=== PATIENT | female | born 1980 | race Caucasian/White ===

== ENCOUNTER 2018-03-02 09:48 | Day surgery (SDC) | payer MEDICAID ==
[~2018-03-02] VITALS: Ht 165.1 cm; Wt 66.2 kg
[2018-03-02] MEDS ORDERED: BUPIVACAINE /EPINEPHRINE/PF 0.25% 30 ML VIAL INJ ONE (09:49)
[2018-03-02] MEDS ORDERED: IOHEXOL 300 mgI/mL, 50 mL INFUS..BTL IV ONE (09:49)
[2018-03-02] MEDS ORDERED: methylPREDNISolone ACETATE 40 MG/ML IM ONE (09:49)
[2018-03-02] MEDS ORDERED: LIDOCAINE 2%, 20 ML MDV IM ONE (09:49)
[2018-03-02] MEDS ORDERED: MIDAZOLAM HCL 5 MG/5 ML VIAL ONE (10:15)
[2018-03-02] MEDS ORDERED: DIPHENHYDRAMINE INJ 50 MG/ML VIAL IVP ONE (11:11)
[2018-03-02 11:28] VITALS: BP_SYST 117
== END 2018-03-02 12:10 | disposition home or self-care (01) ==
LOC: SDS 09:48 → SMU 09:57 → SDS 12:10
PROVIDERS: ATTEND Internal Medicine
DX: M51.16 Intervertebral disc disorders with radiculopathy, lumbar region (principal); M54.5 Low back pain; G40.909 Epilepsy, unspecified, not intractable, without status epilepticus; E11.9 Type 2 diabetes mellitus without complications; Z90.710 Acquired absence of both cervix and uterus; Z98.890 Other specified postprocedural states; Z79.899 Other long term (current) drug therapy; Z88.0 Allergy status to penicillin; Z83.3 Family history of diabetes mellitus
CPT/HCPCS: 62323; J1030; J1200; J2001; J2250; J3490; Q9967

== ENCOUNTER 2018-08-31 09:22 | Day surgery (SDC) | payer MEDICAID ==
[~2018-08-31] VITALS: Ht 165.1 cm; Wt 74.4 kg
[2018-08-31] MEDS ORDERED: IOPAMIDOL 50 ML VIAL IV ONE (09:23)
[2018-08-31] MEDS ORDERED: methylPREDNISolone ACETATE 40 MG/ML IM ONE (09:23)
[2018-08-31] MEDS ORDERED: LIDOCAINE 2%, 20 ML MDV INJ ONE (09:23)
[2018-08-31] MEDS ORDERED: BUPIVACAINE /PF 0.25% 30 ML VIAL INJ ONE (09:23)
[2018-08-31] MEDS ORDERED: IOHEXOL 300 mgI/mL, 50 mL INFUS..BTL IV ONE (09:23)
[2018-08-31] MEDS ORDERED: MIDAZOLAM HCL 5 MG/5 ML VIAL ONE (09:39)
[2018-08-31] MEDS ORDERED: DIPHENHYDRAMINE INJ 50 MG/ML VIAL ONE (09:40)
[2018-08-31 16:26] VITALS: BP_SYST 122
== END 2018-08-31 11:39 | disposition home or self-care (01) ==
LOC: SDS 09:22 → SMU 09:22 → SDS 11:39
PROVIDERS: ATTEND Internal Medicine
DX: M51.16 Intervertebral disc disorders with radiculopathy, lumbar region (principal); G40.909 Epilepsy, unspecified, not intractable, without status epilepticus; G89.4 Chronic pain syndrome; E11.9 Type 2 diabetes mellitus without complications; Z79.899 Other long term (current) drug therapy; Z88.1 Allergy status to other antibiotic agents; Z88.8 Allergy status to other drugs, medicaments and biological substances; Z88.0 Allergy status to penicillin; Z83.3 Family history of diabetes mellitus
CPT/HCPCS: 62323; J1030; J1200; J2001; J2250; J3490; J7120; Q9967; 76000

== ENCOUNTER 2020-06-26 08:06 | Day surgery (SDC) | payer MEDICAID, SELFPAY ==
[~2020-06-26] VITALS: Ht 165.1 cm; Wt 78.0 kg
[2020-06-26] MEDS ORDERED: MORPHINE 2 MG/ML INJ. SYRINGE ONE (10:26)
[2020-06-26] MEDS ORDERED: MIDAZOLAM HCL 5 MG/5 ML VIAL ONE (12:48)
[2020-06-26] MEDS ORDERED: DIPHENHYDRAMINE INJ 50 MG/ML VIAL ONE (12:49)
[2020-06-26 12:55] VITALS: BP_SYST 124
== END 2020-06-26 11:35 | disposition home or self-care (01) ==
LOC: SDS 08:06 → SMU 08:07 → SDS 11:35
PROVIDERS: ATTEND Internal Medicine
DX: M51.16 Intervertebral disc disorders with radiculopathy, lumbar region (principal); G40.909 Epilepsy, unspecified, not intractable, without status epilepticus; G89.4 Chronic pain syndrome; N20.0 Calculus of kidney; E11.9 Type 2 diabetes mellitus without complications; Z79.4 Long term (current) use of insulin; Z79.899 Other long term (current) drug therapy; Z20.828 Contact with and (suspected) exposure to other viral communicable diseases
CPT/HCPCS: 62323; 82962; J1200; J2250; J7030; U0003; 76000; J2270